=== PATIENT | female | born 1990 | race Two or more races ===

== ENCOUNTER 2021-03-10 10:24 | Outpatient (CLI) | payer OTHER | END 2021-03-10 10:25 | disposition home or self-care (01) | LOC: PPH VACUNA 10:24 | DX: Z23 Encounter for immunization (principal) ==

== ENCOUNTER → 2021-03-31 13:19 | Outpatient (CLI) | payer OTHER | END | disposition home or self-care (01) | LOC: PPH VACUNA 13:19 | DX: Z23 Encounter for immunization (principal) ==

== ENCOUNTER 2021-08-16 08:00 | Outpatient (CLI) | payer OTHER | END 2021-08-16 08:30 | disposition home or self-care (01) | LOC: PPH VACUNA 08:00 | PROVIDERS: ATTEND Emergency Medicine Pediatric Emergency Medicine | DX: Z23 Encounter for immunization (principal) ==

== ENCOUNTER 2021-12-04 07:23 | Emergency (ER) | payer OTHER ==
[~2021-12-04] VITALS: Ht 160 cm; Wt 78.9 kg
== END 2021-12-04 08:41 | disposition home or self-care (01) ==
LOC: ER 07:23
DX: B34.9 Viral infection, unspecified (principal); Z11.52 Encounter for screening for COVID-19

== ENCOUNTER 2022-01-30 07:32 | Outpatient (CLI) | payer OTHER | END 2022-01-30 07:42 | disposition home or self-care (01) | LOC: SONOGRAMA 07:32 | DX: E03.9 Hypothyroidism, unspecified (principal) ==

== ENCOUNTER 2022-07-12 07:56 | Outpatient (CLI) | payer OTHER | END 2022-07-12 08:02 | disposition home or self-care (01) | LOC: LAB 07:56 | PROVIDERS: ATTEND Specialist | DX: B20 Human immunodeficiency virus [HIV] disease (principal); I11.9 Hypertensive heart disease without heart failure; E78.49 Other hyperlipidemia; N39.0 Urinary tract infection, site not specified; E03.9 Hypothyroidism, unspecified; K62.5 Hemorrhage of anus and rectum; N18.30 Chronic kidney disease, stage 3 unspecified; D64.9 Anemia, unspecified; E55.9 Vitamin D deficiency, unspecified; A64 Unspecified sexually transmitted disease; E11.69 Type 2 diabetes mellitus with other specified complication ==

== ENCOUNTER 2022-07-18 14:07 | Outpatient (CLI) | payer OTHER | END 2022-07-18 14:12 | disposition home or self-care (01) | LOC: PPH VACUNA 14:07 | PROVIDERS: ATTEND Emergency Medicine Pediatric Emergency Medicine | DX: Z23 Encounter for immunization (principal) ==